=== PATIENT | male | born 1955 | race Caucasian/White ===

== ENCOUNTER 2017-01-31 08:46 | Emergency (ER) | payer OTHER ==
--- NOTE | ~2017-01-31 | ER ---
PATIENT'S NAME: MARTIN CALLAHAN [facility] AGE: 61 Y [address] ROOM: [place] [address] LOCATION: [facility] ADMIT DATE: 01/31/2017 ER/Outpatient Report DISCHARGE DATE: 01/31/2017 FAMILY PHYSICIAN: Nidhi Olvera MD ATTENDING PHYSICIAN: Bebe Brothers Time of Arrival: 0846 hours. Time of Evaluation: 0907 hours. IDENTIFICATION: A 61-year-old male. CHIEF COMPLAINT: Head injury and left arm injury. HISTORY OF PRESENT ILLNESS: The patient is a very pleasant 61-year-old male, who was getting into a tool box on the back of his work truck and the lid slammed closed, striking him on the right side of his head and his left arm. He had no loss of consciousness but "saw stars." His teeth hurt. He has a contusion to his right frontal scalp, and a small laceration to his left forearm. No loss of consciousness. No neck pain. No back pain. No other problems or concerns. ALLERGIES: NO KNOWN DRUG ALLERGIES. CURRENT MEDICATIONS: 1. Lovastatin. 2. Minocycline. MEDICAL PROBLEMS: Hyperlipidemia. PRIOR SURGERIES: Ave procedure. SOCIAL HISTORY: The patient lives here in [place]. Works for the [employer]. Tobacco use, denies. Alcohol use, occasional. Drug use, denies. REVIEW OF SYSTEMS: All systems reviewed and negative other than what is noted in the HPI. FAMILY HISTORY: No pertinent family history identified. PATIENT'S NAME: MARTIN CALLAHAN [facility] AGE: 61 Y [address] ROOM: [place] [address] LOCATION: [facility] ADMIT DATE: 01/31/2017 ER/Outpatient Report DISCHARGE DATE: 01/31/2017 FAMILY PHYSICIAN: Nidhi Olvera MD ATTENDING PHYSICIAN: Bebe Brothers PHYSICAL EXAMINATION: VITAL SIGNS: Weight 101.9 kg, blood pressure 180/110, pulse 78, respirations 16, temperature 98.7, sats 98%. GENERAL: A 61-year-old male, in mild distress. HEENT: Head: Normocephalic. He has a large contusion on right frontal scalp with an abrasion. Eyes: Pupils equal and reactive to light and accommodation. Extraocular movements intact. Nose: Mucosa pink. No lesions. Mouth: No lesions. Pharynx benign. TMs translucent both ears. NECK: Supple. No lymphadenopathy. No nuchal rigidity. SPINE: No tenderness to palpation of his cervical, thoracic, or lumbar spine. LUNGS: Clear to auscultation. Breath sounds are equal. No rhonchi, wheezes, or rales. HEART: Regular rate and rhythm. No murmur, rub, or gallop. ABDOMEN: Bowel sounds present. Soft, nondistended. No hepatosplenomegaly. No palpable masses. Nontender. SKIN: [place], warm, and dry. The patient has a 1 cm gaping laceration on left forearm. NEURO: The patient is alert and oriented x4. Cranial nerves 2 through 12 grossly intact. Motor strength 5/5 throughout. Sensation is intact to light touch. LABORATORY DATA AND X-RAYS: Head CT, negative per Radiology other than the right frontal subgaleal hematoma. Facial bone CT and cervical spine CT, negative per Radiology. The patient's tetanus is current as of 2013. EMERGENCY DEPARTMENT COURSE: Left forearm laceration area was anesthetized and draped in sterile fashion. 1% Xylocaine without epinephrine was used for local anesthesia. Two simple interrupted sutures were placed. The patient tolerated the procedure. No complications. IMPRESSION: 1. Head injury with frontal scalp contusion and abrasion. 2. Left arm laceration, 1 cm, repaired. PLAN: Head injury precautions. Soft diet. Wound care. Tetanus is current. Stay quiet for 2 days. Okay to return to work on Saturday February 04, 2017. Follow up with Dr. Olvera in 7 days for suture removal. Follow up sooner if any problems or concerns. The patient does have an appointment for just his annual exam with Dr. Olvera tomorrow, so he will get rechecked at that time as well. All questions have been answered. PATIENT'S NAME: MARTIN CALLAHAN [facility] AGE: 61 Y [address] ROOM: [place], [place] [address] LOCATION: [facility] ADMIT DATE: 01/31/2017 ER/Outpatient Report DISCHARGE DATE: 01/31/2017 FAMILY PHYSICIAN: Nidhi Olvera MD ATTENDING PHYSICIAN: Bebe Brothers MD Merly CHILD /[id number] d: 01/31/177 t: 02/03/17 0700, OUTPATIENT REPORT
== END 2017-01-31 10:31 | disposition disaster alternative care site (69) ==
LOC: GACC 08:46
PROC: 0HQEXZZ Repair Left Lower Arm Skin, External Approach (ICD-10-PCS; principal; 2017-01-31)
DX: S00.03XA Contusion of scalp, initial encounter (principal); S51.812A Laceration without foreign body of left forearm, initial encounter; E78.5 Hyperlipidemia, unspecified; Z79.899 Other long term (current) drug therapy; Z98.890 Other specified postprocedural states; W22.8XXA Striking against or struck by other objects, initial encounter; Y93.89 Activity, other specified